=== PATIENT | male | born 1985 | race Caucasian/White ===

== ENCOUNTER 2017-02-22 11:29 | Emergency (ER) | payer OTHER ==
[~2017-02-22] VITALS: Ht 182.9 cm; Wt 99.8 kg
--- NOTE | ~2017-02-22 | EKG ---
[facility] [address] [place] [address] ELECTROCARDIOGRAM REPORT Name: BJ HO Room #: DEP ZAHRAA Leos#: [id number] Admission: 02/22/17 Attend Phys: Discharge: 02/22/17 Date of : 83 Report #: [id number] THIS REPORT FOR: //name// [facility] ED Test Date: 2017-02-22 Test Time: 12:16:33 Pat Name: BJ HO Department: Room: Gender: Real Estate Associate: Joseph DRIVER : 1985 Requested By: Cary Dutta Order Number: [id number] MD: Bridger Leon Measurements Intervals Buhl Rate: 81 P: 42 SC: 116 QRS: 12 QRSD: 112 T: 37 QT: 352 QTc: 409 Interpretive Statements Sinus rhythm Borderline short SC interval Normal tracing No previous ECG available for comparison Electronically Signed On 02-23-2017 7:51:32 [employer] by Bridger Leon [email or web address] <ELECTRONICALLY SIGNED> By: Bridger Leon MD, [facility] 02/23/17 0751 1216 1216 Bridger Leon MD, FACC /EPI
[2017-02-22] MEDS ORDERED: ADDERALL 20 MG20 M1 PO (11:58)
[2017-02-22 13:30] LABS: ABSOLUTE NEUTROPHILS 8.3 thou/uL (1.4-8.2); BASOPHILS 0.7 % (0.0-2.0); EOSINOPHILS 2.8 % (0.0-3.0); HEMATOCRIT 47.2 % (42.0-52.0); HEMOGLOBIN 16.4 gm/dL (14.0-18.0); LYMPHOCYTES 17.8 % (24.0-44.0); MCH 32.9 pg (26.0-34.0); MCHC 34.7 g/dL (28.0-37.0); MCV 94.8 fL (80.0-100.0); MONOCYTES 6.2 % (1.0-8.0); PLATELET COUNT 270 thou/uL (150-400); POLYS 72.5 % (36.0-66.0); RBC 4.98 mil/uL (4.50-6.00); RDW 13.7 % (10.5-14.5); WBC 11.5 thou/uL (4.0-11.0)
[2017-02-22 13:32] LABS: MANUAL DIFF NO
[2017-02-22 13:35] LABS: CALCIUM 9.3 mg/dL (8.5-10.1); CREATININE 1.1 mg/dL (0.7-1.3); POTASSIUM 4.1 mmol/L (3.5-5.1)
[2017-02-22 13:36] LABS: MAGNESIUM 2.1 mg/dL (1.8-2.4)
[2017-02-22 15:04] VITALS: BP 130/85
== END 2017-02-22 15:04 | disposition home or self-care (01) ==
LOC: ER 11:29
PROVIDERS: Emergency Medicine
DX: J06.9 Acute upper respiratory infection, unspecified (principal); B97.89 Other viral agents as the cause of diseases classified elsewhere; R40.0 Somnolence; I10 Essential (primary) hypertension; F17.210 Nicotine dependence, cigarettes, uncomplicated; Z98.890 Other specified postprocedural states